=== PATIENT | female | born 1960 | race Caucasian/White ===

== ENCOUNTER 2019-11-26 17:35 | Outpatient (CLI) | payer OTHER, SELFPAY ==
--- NOTE | ~2019-11-26 | XR_ITS ---
XR ankle RT min 3V 11/26/2019 17:58 Indication: Right ankle pain after recent injury Procedure: 4 views right ankle Comparison: No prior studies for comparison. 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 Moderate soft tissue s welling. Ankle mortise intact. Talar dome is normal. No other fracture identified. Impression: 1: Avulsion fracture distal tip of the fibula. Reviewed, dictated and finalized at location A. Impression: 1: Avulsion fracture distal tip of the fibula.
== END 2019-11-26 17:36 | disposition home or self-care (01) ==
LOC: ANHIMG 17:42
PROVIDERS: PCP Family Medicine Adolescent Medicine; Visit Provider Family Medicine Adolescent Medicine
DX: S82.831A Other fracture of upper and lower end of right fibula, initial encounter for closed fracture (principal); X58.XXXA Exposure to other specified factors, initial encounter
CPT/HCPCS: 73610

== ENCOUNTER → 2021-04-06 13:25 | Outpatient (CLI) | payer OTHER, SELFPAY ==
--- NOTE | ~2021-04-06 | XR_ITS ---
XR knee LT min 4V DATE: 04/06/2021 13:50 INDICATION: Worsening pain of left knee TECHNIQUE: [place], standing AP, PA and lateral views COMPARISON: None FINDINGS: There is osteopenia. There is mild loss of height of medial compartment joint space and slight periarticular spurring at t he knee joint. No fracture or dislocation or joint effusion. No periosteal reaction or bone destruction. No radiopaq ue intra-articular loose body or chondrocalcinosis. IMPRESSION: Osteopenia Mild osteoarthritis Reviewed, dictated and finalized at location A.
--- NOTE | ~2021-04-06 | XR_ITS ---
XR shoulder RT min 2V DATE: 04/06/2021 13:48 INDICATION: Worsening right shoulder pain TECHNIQUE: 4 views COMPARISON: None FINDINGS: There is diffuse osteopenia. No fracture or dislocation, periosteal reaction or bone destruction or abnormal soft tissue calcifica tion. Normal alignment at the acromioclavicular and glenohumeral joints. IMPRESSION: Osteopenia; otherwise negative Reviewed, dictated and finalized at location A.
== END ==
PROVIDERS: PCP Family Medicine Adolescent Medicine; Visit Provider Family Medicine Adolescent Medicine
DX: M85.862 Other specified disorders of bone density and structure, left lower leg (principal); M17.12 Unilateral primary osteoarthritis, left knee; M85.811 Other specified disorders of bone density and structure, right shoulder
CPT/HCPCS: 73030; 73564

== ENCOUNTER 2024-12-02 06:31 | Emergency (ER) | payer OTHER, SELFPAY ==
--- NOTE | ~2024-12-02 | XR_ITS ---
EXAMINATION: XR chest 2V 12/02/2024 06:58 INDICATION: Back pain and dizziness PROCEDURE: 2 view chest COMPARISON: No prior studies for comparison. FINDINGS: The lungs are clear. The cardiomediastinal silhouette is within normal limits. There are no pleural effusions. There is no pneumothorax suspected. IMPRESSION: 1: NO ACUTE CARDIOPULMONARY DISEASE. Reviewed, dictated and finalized at location A.
--- OUTSIDE RECORDS SUMMARY | 2024-12-02 06:32 | XMS_ITS | Clinical Summary ---
Author Organization [facility] Address [address] [place] [address] Phone Care Team Providers Care Chancellor Name Role Phone Daniel Weeks MD Primary Care Provider +1- [phone] Allergies No known active allergies Medications omeprazole (PriLOSEC) 20 mg Capsule, Delayed Release(E.C.) Take 20 mg by mouth daily. Active oxyCODONE-aceta minophen (PERCOCET) 5-325 mg tabletIndicatio ns:Abnormal mammogram of right breast Take 1 Tablet by mouth every 6 hours as needed for Pain. Max Daily Amount: 4 Tablets 10 Tablet 05/13/2019 4:31 PM SUPERVISOR LEAF SPRING FABRICATION 05/13/2019 Active Active Problems Patient Care Coordination No te Formatting of this note migh t be different from the original. Primary Care: Daniel Weeks MD Referring Provider: Daniel Weeks MD [address] [place] [address] [address] [place] [address] Other: No known active problems Encounters Date Type Department Care Team Description 11/18/2024 External Device Data [facility] ABSTRACTION Provider, Abstract 11/17/2024 External Device Data [facility] ABSTRACTION Provider, Abstract 09/16/2024 External Device Data [facility]STRACTION Provider, Abstract 09/08/2024 External Device Data [facility]STRACTION Provider, Abstract 09/08/2024 External Device Data [facility]STRA[facility] Provider, Abstract 09/05/2024 External Device Data [facility] [facility]STRACTION Provider, Abstract 09/04/2024 External Device Data [facility] [facility]STRACTION Provider, Abstract 09/02/2024 External Device Data [facility]STRACTION Provider, Abstract 09/01/2024 External Device Data [facility]STRACTION Provider, Abstract from Last 3 Months Social History Tobacco Use Types Packs/Day Years Used Date Smoking Tobacco: Never Smokeless Tobacco: Never Alcohol Use Standard Drinks/Week Comments Yes 0 (1 standard drink = 0.6 oz pur e alcohol) MODERATE Comments No Sex and Gender Information Value Date Recorded Sex Assigned at Not on file Legal Sex Female 12:38 PM CDT Gender Identity Not on file Sexual Orientation Not on file Last Filed Vital Signs Vital Sign Reading Time Taken Comments Blood Pressure 103/66 05/13/2019 1:32 PM SUPERVIS[employer] Pulse 74 05/13/2019 1:32 PM SUPERVISOR [employer] Temperature 36.7 C (98 F) 05/13/2019 1:32 PM SUPERVISOR [employer]RICATION Respiratory Rate 18 05/13/2019 1:32 PM SUPERVISOR [employer]RICATION Oxygen Saturation 97% 05/13/2019 1:32 PM SUPERVISOR [employer] F[employer]RICATION Inhaled Oxygen Concentration - - Weight 80.9 kg (178 lb 6.4 oz) 05/13/2019 8:36 A M SUPERVISOR [employer] F[employer]RICATION Height 162.6 cm (5' 4) 05/13/2019 8:36 AM SUPERVISOR [employer] F[employer]RICATION Body Mass Index 30.62 05/13/2019 8:36 AM SUPERVISOR [employer] F[employer]RICATION Plan of Treatment Health Maintenance Due Date Last Done Comments DTAP/TDAP/TD VACCINES (1 - Tdap) 02/01/1979 HPV/Cotest (21-29) 02/01/1981 CERVICAL CANCER SCREENING 02/01/1990 HPV/Cotest (30-65) 02/01/1990 PAP SMEAR 02/01/1990 COLORECTAL SCREENING 02/01/2005 Colorectal Cancer Screening 02/01/2005 FIT-DNA Q 3 years 02/01/2005 FIT/FOBT Q 1 year 02/01/2005 Flex Sig/CT Colonography Q 5 years 02/01/2005 ZOSTER VACCINE (1 of 2) 02/01/2010 BREAST CANCER SCREENING 01/30/2020 01/29/2019, 01/09 INFLUENZA VACCINE (#1) 2024 RSV VACCINE (60+ or ) (1 - 1-dose 75+ series) 02/01/2035 Medical Devices Implanted Type Area Manager Graphic Device Identifier Shelf Expiration Date Model / Serial / Lot Inga Dbm 8x10cm [id number] - [id number] Implanted:Qty: 1 on 11/11/2015 by Adonis Samayoa MD at [facility] Bone Left: Spine Lumbar [employer] INC 04/11/2018 [id number] / / [id number] Description:req#[id number] Hemostatic Surgicel 2x14in 1950 - [id number] Implanted:Qty: 1 on 05/13/2019 by Deepthi Tomlinson MD at [facility] Hemostatic Right: Breast J&J- [employer] [id number] [birth year]221950 / / [id number] Rafael Viper-2 45mm -045 - Ssterilized 2015 Implanted:Qty: 2 on 11/11/2015 by Adonis Samayoa MD at [facility] Rafael N/A: Spine Lumbar J&J- DEPUY SP[employer] INC -0 45 / STERILIZE D 2015 / [id number] Description:All Depuy spinal hardware was processed on requisition,[id number]. Setscrew Viper 15-000 - Ssterilized 2015 Implanted:Qty: 4 on 11/11/2015 by Adonis Samayoa MD at [facility] Screw N/A: Spine Lumbar J&J- DEPU[employer] SP[employer] 15-0 00 / STERILIZE D 2015 / [id number] Screw Viper 5x40mm 540 - Ssterilized 2015 Implanted:Qty: 4 on 11/11/2015 by Adonis Samayoa MD at [facility] Screw N/A: Spine Lumbar J&J- DEPU[employer] 15-5 40 / STERILIZE D 2015 / [id number] Sealant Floseal W/ Adptr 10ml [id number] - [id number] Implanted:Qty: 1 on 11/11/2015 by Adonis Samayoa MD at [facility] Sealant Left: Spine Lumbar OLSON- BIOSCIENCE 03/30/2018 [id number] / / [id number] Vbr Cncrd Bullet Crv [id number] - Ssterilized 2015 Implanted:Qty: 1 on 11/11/2015 by Adonis Samayoa MD at [facility] Vertebral Body N/A: Spine Lumbar J&J- DEPU[employer] 1878-23-5 12 / STERILIZE D 2015 / [id number] Procedures Procedure Name Priority Date/Time Associated Diagnosis Comments MAMMOGRAM REPORT Routine 01/29/2019 from Last 3 Months or Most Recently Relevant to Health Maintenance Results * MAMMOGRAM REPORT (01/29/2019) us Daniel Weeks MD MAMMO ORDERABLES Edited Re sult - Final [facility] from Last 3 Months or Most Recently Relevant to Health Maintenance Insurance RX [employer] RX Member Subscriber Plan / Payer (Ef fective 2019-Present) Name:Chaitanya, Dee S Relation to Subscriber:Self Name:Dee Tavares Subscriber ID:Not on file Payer ID:Not on file Group ID:[id number] Type:RX Commercial Address: [place] Advance Directives For more information, please contact: [phone] * Full Code (Latest Code Status on File) Date Activated Date Inactivated Comments 05/13/2019 8:49 AM 05/13/2019 3:44 PM * Full Code Date Activated Date Inactivated Comments 11/11/2015 7:25 AM 11/13/2015 1:04 PM * Full Code Date Activated Date Inactivated Comments 11/11/2015 5:57 AM 11/11/2015 7:25 AM Care Teams Chancellor Relationship Specialty Start Date End Date Daniel Weeks MD PCP - General Family Practice 09/30/15
--- NOTE | 2024-12-02 06:34 | ECG_ITS ---
Test Date: 2024-12-02 06:43:33 Measurements Intervals [place] Rate: 71 P: 25 DC: 145 QRS: 55 QRSD: 91 T: 52 QT: 379 QTc: 413 Interpretive Statements SINUS RHYTHM BASELINE ARTIFACT- V2 NORMAL ECG No previous ECG available for comparison Electronically Signed On 12-02-2024 07:10:10 CDT by Roosevelt Marcano D.O.
[2024-12-02 06:40] VITALS: BP 123/85; PULSE 79; RESP 15; TEMP 36.5; O2SAT 100
--- NOTE | 2024-12-02 06:53 | ED.DIZZY ---
HPI - Dizziness General Chief Complaint: Dizziness Stated Complaint: jaw pain, back pain, dizziness Time Seen by Provider: 12/02/24 06:41 History of Present Illness HPI Narrative: Yesterday patient was feeling nauseous, called off of work, and then started a sensation of chest pain/pressure that radiated across her whole chest into her back with some jaw tightness. This morning she woke up and was getting ready for work when she felt very dizzy, got nauseous again and had the chest pressure, and came in to be checked out. She does have a history of GERD, but this feels different. Related Data Allergies Allergy/AdvReac Type Severity Reaction Status Date / Time No Known Allergies Allergy Mild Verified 12/02/24 07:36 Review of Systems Review of Systems: All systems reviewed & are unremarkable except as noted in HPI and below PMFSH Past Medical History Medical History (Updated 12/02/24 @ 09:20 by Anitra Goodman MD) GERD (gastroesophageal reflux disease) Hyperlipidemia Surgical History Surgical History History of back surgery Family History Family History Father Family history of heart disease in male family member before age 55 Diabetes mellitus Sibling Diabetes mellitus Social History Social History Smoking status: Never smoker Alcohol intake: current Drinks per week: 1 Substance use: never Living arrangements: with family Occupation/Education: retired Gender identity (if verbalized by the patient): Female Spiritual care concerns: No Exam Narrative: EXAMINATION OF ORGAN SYSTEMS/BODY AREAS: Constitutional: Vital signs per nursing GENERAL:[No acute distress, non-toxic appearing.] HEAD: Normal with no signs of head trauma. EYES: EOMI, conjunctiva normal ENT: Hearing grossly intact LUNGS: Nonlabored breathing. HEART: [Regular rate and rhythm] ABD: [Soft], [nontender to palpation] EXT: Normal range of motion SKIN: [No rashes or lesions.] NEURO: [Alert and oriented x 3. No gross focal sensory or strength deficits.] PSYCH: Normal affect Course Vital Signs Vital signs: Vital Signs Temperature 97.7 F 12/02/24 06:40 Pulse Rate 79 12/02/24 06:40 Respiratory Rate 15 12/02/24 06:40 Blood Pressure 123/85 12/02/24 06:40 Pulse Oximetry 100 12/02/24 06:40 Oxygen Delivery Room Air 12/02/24 06:40 Temperature 97.4 F L 12/02/24 07:21 Pulse Rate 75 12/02/24 09:43 Respiratory Rate 15 12/02/24 09:43 Blood Pressure 122/87 12/02/24 09:43 Pulse Oximetry 95 12/02/24 09:43 Oxygen Delivery Room Air 12/02/24 06:40 MDM - Dizziness MDM Narrative Medical decision making narrative: ED COURSE AND MEDICAL DECISION MAKINF presenting with chest pain. EKG done in triage negative for acute ischemic changes. Cardiac workup is initiated. EKG: Performed in triage and interpreted by me. Normal sinus rhythm. Rate 71. Normal axis. UT normal. QRS duration normal. QTc normal. No pathologic Q waves. No ST segment elevation or depression to suggest acute ischemia. No RV strain pattern. HEART score is 2 with no acute ischemic changes on EKG and negative troponin making ACS unlikely. Presentation not consistent with dissection or aneurysm without radiation of pain or pulse deficits, and patient resting very comfortably in no distress without pain currently. CXR negative for mediastinal widening. No abdominal pain or signs of sepsis that would be concerning for esophageal perforation or mediastinitis. No cardiomegaly or JVD to suggest pericardial effusion/tamponade. Shared decision making with patient regarding staying for a 3 hour troponin, she feels great and has no murmur symptoms and would rather not stay, and the pain has been ongoing for more than 12 hours so we discussed if cardiac would likely have resulted in some findings. Patient would really like to go home at this time. On repeat evaluation just prior to discharge, the patient is no acute distress. I had a long discussion with the patient and with shared decision making, she is comfortable with outpatient management. She was given clear return instructions by myself in person as well as on discharge paperwork. Lab Data 12/02/24 06:49 12/02/24 06:49 Labs: Lab Results 12/02/24 Range/Units 06:49 WBC 6.3 (4.5-10.0) K/mm3 RBC 4.31 (4.2-5.4) M/mm3 Hgb 13.0 (12.0-15.0) g/dL Hct 38.3 (37.0-47.0) % MCV 88.9 (80-100) fl MCH 30.2 (26-34) pg MCHC 33.9 (32-36) g/dl RDW 12.5 (11.5-14.5) % Plt Count 157 (150-375) k/mm3 MPV 10.2 (7.4-10.4) fl Immature Gran % (Auto) 0.2 (0-0.5) % Neut % (Auto) 77.6 H (45.5-73.1) % Lymph % (Auto) 10.9 L (18.3-44.2) % [place] % (Auto) 9.3 H (2.6-8.5) % Eos % (Auto) 1.7 (0-4.4) % Baso % (Auto) 0.3 (0.2-1.2) % Lymph # (Auto) 0.69 L (0.9-3.2) K/mm3 [place] # (Auto) 0.6 (0.1-0.6) K/mm3 Eos # (Auto) 0.1 (0-0.3) K/mm3 Baso # (Auto) 0.0 (0.0-0.1) K/mm3 Abs Immat Gran (auto) 0.01 (0.00-0.031) K/mm3 Absolute Neuts (auto) 4.9 (1.3-6.7) K/mm3 Absolute Nucleated RBC 0.000 (0.0-0.012) K/mm3 Nucleated RBC % 0.0 (0.0-0.2) % Sodium 139 (137-145) mmol/L Potassium 4.1 (3.4-5.0) mmol/L Chloride 109 H (98-107) mmol/L Carbon Dioxide 24 (22-30) mmol/L Anion Gap 6 (4-12) mmol/L BUN 14 (7-17) mg/dL Creatinine 0.74 (0.7-1.0) mg/dL Estim Creat Clear Calc 62 ml/min Estimated GFR > 60 (59 - ) Glucose 105 (65-110) mg/dL Calcium 9.2 (8.4-10.2) mg/dL Total Bilirubin 1.6 H (0.2-1.3) mg/dL AST 47 H (14-36) U/L ALT 37 H (6-35) U/L Alkaline Phosphatase 80 (38-126) U/L Troponin I < 0.012 (0.000-0.034) ng/mL Total Protein 7.3 (6.3-8.2) g/dL Albumin 4.3 (3.5-5.1) g/dL Discharge Plan Discharge Clinical Impression: Upper respiratory infection, Chest pain Patient Disposition: Home Condition: Stable Instructions: Chest Pain (ED), Viral Syndrome (ED) Additional Instructions: Please follow up with your doctor; if your chest pain comes back, please come back to the ER immediately. Patient Language: Luxembourgish Prescriptions: New fluticasone propionate [Allergy Relief (fluticasone)] 50 mcg/actuation spray,suspension 1 spray intranasal DAILY Qty: 16 0RF Rx Instructions: administer into each nostril No Action pantoprazole 20 mg tablet,delayed release (DR/EC) 20 mg PO QAM Qty: 90 3RF rosuvastatin 20 mg tablet 20 mg PO DAILY Qty: 90 3RF Follow-up/Referrals: Daniel Weeks MD [Primary Care Provider] - 2 Days
[2024-12-02 06:57] LABS: Basophils Percent Auto 0.3 % (0.2-1.2); Eosinophils Absolute Auto 0.1 K/mm3 (0-0.3); Eosinophils Percent Auto 1.7 % (0-4.4); Hematocrit 38.3 % (37.0-47.0); Immature Granulocyte Absolute 0.01 K/mm3 (0.00-0.031); Immature Granulocyte Percent A 0.2 % (0-0.5); Lymphocytes Absolute Auto 0.69 K/mm3 (0.9-3.2); Lymphocytes Percent Auto 10.9 % (18.3-44.2); Mean Corpuscular HGB Conc 33.9 g/dl (32-36); Mean Corpuscular Hemoglobin 30.2 pg (26-34); Mean Corpuscular Volume 88.9 fl (80-100); Mean Platelet Volume 10.2 fl (7.4-10.4); Monocytes Absolute Auto 0.6 K/mm3 (0.1-0.6); Monocytes Percent Auto 9.3 % (2.6-8.5); Neutrophils Absolute Auto 4.9 K/mm3 (1.3-6.7); Neutrophils Percent Auto 77.6 % (45.5-73.1); Platelet Count Result 157 k/mm3 (150-375); Red Blood Count 4.31 M/mm3 (4.2-5.4); Red Cell Distribution Width 12.5 % (11.5-14.5); White Blood Count 6.3 K/mm3 (4.5-10.0)
[2024-12-02] MEDS: LACTATED RINGERS 1,000 ML 999 ML IV CONT (07:10)
[2024-12-02] MEDS: ONDANSETRON INJ 4 MG/2 ML VIAL IV PUSH (07:10)
[2024-12-02] MEDS: FAMOTIDINE 20 MG/2 ML VIAL IV PUSH (07:10)
--- OUTSIDE RECORDS SUMMARY | 2024-12-02 07:14 | XMS_ITS | Clinical Summary ---
Author Organization [facility] Address [address] [place] [address] Phone Care Team Providers Care Director Statistical Programming Name Role Phone Daniel Weeks MD Primary Care Provider +1- [phone] Allergies No known active allergies Medications omeprazole (PriLOSEC) 20 mg Capsule, Delayed Release(E.C.) Take 20 mg by mouth daily. Active oxyCODONE-aceta minophen (PERCOCET) 5-325 mg tabletIndicatio ns:Abnormal mammogram of right breast Take 1 Tablet by mouth every 6 hours as needed for Pain. Max Daily Amount: 4 Tablets 10 Tablet 05/13/2019 4:31 PM DATA ANALYSIS ASSISTANT 05/13/2019 Active Active Problems Patient Care Coordination No te Formatting of this note migh t be different from the original. Primary Care: Daniel Weeks MD Referring Provider: Daniel Weeks MD [address] [place] [address] [address] [place] [address] Other: No known active problems Encounters Date [...] Comments Blood Pressure 103/66 05/13/2019 1:32 PM DATA ANALYSIS ASSISTANT Pulse 74 05/13/2019 1:32 PM DATA ANALYSIS ASSISTANT Temperature 36.7 C (98 F) 05/13/2019 1:32 PM DATA ANALYSIS ASSISTANT Respiratory Rate 18 05/13/2019 1:32 PM DATA ANALYSIS ASSISTANT Oxygen Saturation 97% 05/13/2019 1:32 PM DATA ANALYSIS ASSISTANT Inhaled Oxygen Concentration - - Weight 80.9 kg (178 lb 6.4 oz) 05/13/2019 8:36 A M DATA ANALYSIS ASSISTANT Height 162.6 cm (5' 4) 05/13/2019 8:36 AM DATA ANALYSIS ASSISTANT Body Mass Index 30.62 05/13/2019 8:36 AM DATA ANALYSIS ASSISTANT Plan of Treatment Health Maintenance Due Date [...] series) 02/01/2035 Medical Devices Implanted Type Area Oyster Grader Device Identifier Shelf Expiration Date Model / Serial / Lot Inga Dbm 8x10cm [id number] - [id number] Implanted:Qty: 1 on 11/11/2015 by Adonis Samayoa MD at [facility] Bone Left: Spine Lumbar [employer] 04/11/2018 [id number] / / [id number] Description:req#[id number] Hemostatic Surgicel 2x14in 1950 - [id number] Implanted:Qty: 1 on 05/13/2019 by Deepthi Tomlinson MD at [facility] Hemostatic Right: Breast J&J- [employer] [id number] [birth year]221950 / / [id number] Rafael Viper-2 45mm -045 - Ssterilized 2015 Implanted:Qty: 2 on 11/11/2015 by Adonis Samayoa MD at [facility] Rafael N/A: Spine Lumbar J&J- DEPU[employer] -0 45 / STERILIZE D 2015 / [id number] Description:All Depuy spinal hardware was processed on requisition,[id number]. Setscrew Viper 15-000 - Ssterilized 2015 Implanted:Qty: 4 on 11/11/2015 by Adonis Samayoa MD at [facility] Screw N/A: Spine Lumbar J&J- [employer] 15-0 00 / STERILIZE D 2015 / [id number] Screw Viper 5x40mm 540 - Ssterilized 2015 Implanted:Qty: 4 on 11/11/2015 by Adonis Samayoa MD at [facility] Screw N/A: Spine Lumbar J&J- [employer] 15-5 40 / STERILIZE D 2015 / [id number] Sealant Floseal W/ Adptr 10ml [id number] - [id number] Implanted:Qty: 1 on 11/11/2015 by Adonis Samayoa MD at [facility] Sealant Left: Spine Lumbar OLSON- BIOSCIENCE 03/30/2018 [id number] / / [id number] Vbr Cncrd Bullet Crv [id number] - Ssterilized 2015 Implanted:Qty: 1 on 11/11/2015 by Adonis Samayoa MD at [facility] Vertebral Body N/A: Spine Lumbar J&J- [...] Advance Directives For more information, please contact: [phone] * Full Code (Latest Code Status on File) Date Activated Date Inactivated Comments 05/13/2019 8:49 AM 05/13/2019 3:44 PM * Full Code Date Activated Date Inactivated Comments 11/11/2015 7:25 AM 11/13/2015 1:04 PM * Full Code Date Activated Date Inactivated Comments 11/11/2015 5:57 AM 11/11/2015 7:25 AM Care Teams Director Statistical Programming Relationship Specialty Start Date End Date Daniel Weeks MD PCP - General Family Practice 09/30/15
[2024-12-02 07:21] VITALS: BP 131/85; PULSE 64; RESP 12; TEMP 36.3; O2SAT 95
[2024-12-02 07:25] VITALS: BP 125/81; BP 130/81; BP 131/85; PULSE 61; PULSE 73
[2024-12-02 07:46] LABS: Alanine Aminotransferase 37 U/L (6-35); Albumin Level 4.3 g/dL (3.5-5.1); Alkaline Phosphatase 80 U/L (38-126); Anion Gap 6 mmol/L (4-12); Aspartate Amino Transferase 47 U/L (14-36); Bilirubin,Total 1.6 mg/dL (0.2-1.3); Blood Urea Nitrogen 14 mg/dL (7-17); Calcium 9.2 mg/dL (8.4-10.2); Carbon Dioxide 24 mmol/L (22-30); Chloride 109 mmol/L (98-107); Estimated CRCL calculation 62 ml/min; Estimated Glomerular Filt Rate > 60; Glucose 105 mg/dL (65-110); Potassium 4.1 mmol/L (3.4-5.0); Sodium 139 mmol/L (137-145); Total Protein 7.3 g/dL (6.3-8.2)
[2024-12-02 09:00] LABS: Troponin I < 0.012 ng/mL (0.000-0.034)
[2024-12-02 09:43] VITALS: BP 122/87; PULSE 75; RESP 15; O2SAT 95
== END 2024-12-02 09:44 | disposition home or self-care (01) ==
PROVIDERS: Emergency Provider Emergency Medicine; PCP Family Medicine Adolescent Medicine
DX: J06.9 Acute upper respiratory infection, unspecified (principal); R07.89 Other chest pain; E78.5 Hyperlipidemia, unspecified; K21.9 Gastro-esophageal reflux disease without esophagitis
CPT/HCPCS: 36415; 71046; 80053; 84484; 85025; 93005; 96361; 96374; 96375; 99284; J2405; J7120

== ENCOUNTER 2025-02-19 07:49 | Outpatient (CLI) | payer OTHER, SELFPAY ==
--- NOTE | ~2025-02-19 | US_ITS ---
US abdomen limited EXAMINATION: US Abdomen limited INDICATION: R79.89 PROCEDURE: Realtime High Resolution abdomen ultrasound. COMPARISON: No prior studies for comparison FINDINGS: Liver is unremarkable. Portal vein is unremarkable with hepatopedal flow. Visualized pancreas is unremarkable. Gallbladder is unremarkable. Common duct measures 4 mm. No Espinosa's sign. IMPRESSION: 1: Unremarkable study. If continued concern, consider a CT of the abdomen and pelvis for further assessment. Reviewed, dictated and finalized at location Q. IMPRESSION: 1: Unremarkable study. If continued concern, consider a CT of the abdomen and pelvis for further asses sment.
== END 2025-02-19 07:50 | disposition home or self-care (01) ==
LOC: MICIMG 07:49
PROVIDERS: PCP Family Medicine; Visit Provider Family Medicine
DX: R79.89 Other specified abnormal findings of blood chemistry (principal)
CPT/HCPCS: 76705

== ENCOUNTER 2025-05-21 09:17 | Outpatient (CLI) | payer OTHER, SELFPAY ==
--- NOTE | ~2025-05-21 | XR_ITS ---
XR thoracolumbar Indication: M54.9 - Dorsalgia, unspecified Comparison: None Findings: Posterior fixation of L4 on L5 with disc prostheses, the hardware is intact. Severe loss of disc at L5-S1. Soft tissues unremarkable Impression: No acute abnormality. Reviewed, dictated and finalized at location P. AGE LINER Impression: No acute abnormality.
== END 2025-05-21 09:18 | disposition home or self-care (01) ==
LOC: MICIMG 09:21
PROVIDERS: PCP Family Medicine; Visit Provider Family Medicine
DX: M54.9 Dorsalgia, unspecified (principal)
CPT/HCPCS: 72080